=== PATIENT | female | born 2000 | race Caucasian/White ===

== ENCOUNTER 2022-10-19 19:21 | Inpatient (IN) | payer OTHER ==
[~2022-10-19] VITALS: Ht 162.6 cm; Wt 68.1 kg
[2022-10-20 00:20] VITALS: BP 111/72
[2022-10-20 00:23] VITALS: BP 111/72
[2022-10-20 03:59] LABS: Basophils # (auto) 0 10 ^3/uL (0-0.2); Basophils % (auto) 0.5 % (0.0-2.0); Eosinophils # (auto) 0.1 10 ^3/uL (0-0.8); Eosinophils % (auto) 0.5 % (0.0-7.0); Hematocrit 37.2 % (36.0-46.0); Hemoglobin 12.7 g/dL (12.2-16.2); Lymphocytes # (auto) 2.4 10 ^3/uL (0.4-5.4); Mean Corpuscular Hemoglobin 30.5 pg (28.0-32.0); Mean Corpuscular Volume 89.7 fL (80.0-100.0); Monocytes # (auto) 0.9 10 ^3/uL (0-1.3); Monocytes % (auto) 8.6 % (0.0-12.0); Neutrophils # (auto) 6.8 10 ^3/uL (1.6-8.6); Neutrophils % (auto) 66.4 % (37.0-80.0); Red Blood Cells 4.15 10^6/uL (4.0-5.20); Red Cell Distribution Width 13.8 % (11.8-14.3); White Blood Cell 10.2 10^3/uL (4.4-10.8)
[2022-10-20] MEDS: MORPHINE SULFATE INJ 2 MG/ml SYRG IV PRN ×4 (04:01→20:31)
[2022-10-20] MEDS: ONDANSETRON HCL 4 MG/2 ML VIAL IV PRN ×3 (04:03→20:31)
[2022-10-20 04:10] LABS: INR 1.03 (0.9-1.15); Partial Thromboplastin Time 29.4 sec (24.6-33.4)
[2022-10-20 04:12] LABS: Albumin 3.3 g/dL (3.4-5.0); BUN/Creatinine Ratio 14.9; Calcium 8.2 mg/dL (8.5-10.1); Potassium 3.6 mmol/L (3.5-5.1)
[2022-10-20 04:14] LABS: Bilirubin, Total 0.4 mg/dL (0.2-1.0); Total Protein 6.8 g/dL (6.4-8.2)
[2022-10-20] MEDS: SODIUM CHLORIDE 0.9% 1,000 ML IV SCH ×2 (04:24→16:50)
[2022-10-20 05:00] VITALS: BP 107/68
[2022-10-20] MEDS: metroNIDAZOLE 500MG/100ML 100 ML IV SCH ×3 (06:06→22:18)
[2022-10-20 07:09] LABS: Urine Blood Negative /uL (Negative); Urine Specific Gravity 1.032 (1.001-1.035)
[2022-10-20] MEDS ORDERED: BUPIVACAINE 0.25% INJ 50ML VIAL ONE (08:57)
[2022-10-20] MEDS ORDERED: fentaNYL CITRATE 100 MCG/2 ML VL ONE (08:57)
[2022-10-20] MEDS ORDERED: MEPERIDINE HCL (25 MG/ML) 1ML VIAL ONE (08:57)
[2022-10-20] MEDS ORDERED: SODIUM CHLORIDE LOCK 10 ML ONE (08:58)
[2022-10-20] MEDS ORDERED: GLYCOPYRROLATE 0.2 MG/ML 1ML VIAL ONE (08:58)
[2022-10-20] MEDS ORDERED: ROCURONIUM 10MG/ML 10ML VIAL IV ONE (08:58)
[2022-10-20] MEDS ORDERED: MIDAZOLAM HCL 2MG/2ML 2ml VIAL (1mg/ml) ONE (08:58)
[2022-10-20] MEDS ORDERED: DexAMETHasone SOD PHOS 10MG/1ML VIAL INJ ONE (08:58)
[2022-10-20] MEDS ORDERED: NEOSTIGMINE 1 MG/ML INJ (10mg/10ML VIAL) ONE (08:58)
[2022-10-20] MEDS ORDERED: ONDANSETRON HCL 4 MG/2 ML VIAL ONE (08:58)
[2022-10-20] MEDS ORDERED: SUCCINYLCHOLINE CHLORIDE 20 MG/ML 10ML VIAL IV ONE (08:59)
[2022-10-20] MEDS: cefTRIAXone 1GM/50ML D5W 50 ML IV SCH (09:00)
[2022-10-20 09:15] LABS: INR 1.03 (0.9-1.15)
[2022-10-20] MEDS ORDERED: HYDROmorphone HCL 2 MG/ML VL/or syr IV PRN ×2 (09:30)
[2022-10-20] MEDS ORDERED: MORPHINE SULFATE 4 MG/ML SYR/VIAL IV PRN (09:30)
[2022-10-20] MEDS ORDERED: METOCLOPRAMIDE HCL 5MG/ml INJ 2ml VIAL IV PRN (09:30)
[2022-10-20] MEDS ORDERED: ceFAZolin 1GM/50ML 100 ML IV ONE (09:32)
[2022-10-20] MEDS ORDERED: PANTOPRAZOLE 40 MG/10 ML VIAL INJ IV SCH (10:00)
[2022-10-20] MEDS ORDERED: SUGAMMADEX 200mg/2ml Vial (100MG/ML) IV ONE (10:24)
[2022-10-20] MEDS ORDERED: BUPIVACAINE 0.25% INJ 50ML VIAL IJ ONE (10:25)
[2022-10-20] MEDS ORDERED: PROPOFOL 10 MG/ML 20 ML IV ONE (10:47)
[2022-10-20] MEDS ORDERED: ONDANSETRON HCL 4 MG/2 ML VIAL IV ONE (11:25)
[2022-10-20] MEDS ORDERED: LACTATED RINGER'S 1,000 ML IV ONE (11:30)
[2022-10-20 12:25] VITALS: BP 116/73
[2022-10-20] MEDS: D5W/SOD CHL 0.45%/KCL 20MEQ 1,000 ML IV SCH ×2 (12:35→22:24)
[2022-10-20 16:48] VITALS: BP 97/60
[2022-10-20] MEDS ORDERED: MORPHINE SULFATE INJ 2 MG/ml SYRG IV ONE (18:00)
[2022-10-20 23:28] VITALS: BP 107/63
[2022-10-21] VITALS (7 sets, daily range): BP systolic 92–113; BP diastolic 56–78
[2022-10-21] MEDS: ONDANSETRON HCL 4 MG/2 ML VIAL IV PRN ×4 (00:35→20:11)
[2022-10-21] MEDS: MORPHINE SULFATE INJ 2 MG/ml SYRG IV PRN ×4 (00:36→20:12)
[2022-10-21] MEDS: metroNIDAZOLE 500MG/100ML 100 ML IV SCH ×3 (05:45→21:07)
[2022-10-21] MEDS: SODIUM CHLORIDE 0.9% 1,000 ML IV SCH (06:10)
[2022-10-21] MEDS: D5W/SOD CHL 0.45%/KCL 20MEQ 1,000 ML IV SCH (07:30)
[2022-10-21] MEDS: cefTRIAXone 1GM/50ML D5W 50 ML IV SCH (08:39)
[2022-10-22 05:00] VITALS: BP_SYST 128; BP_SYST 99; BP_DIAS 52; BP_DIAS 76
[2022-10-22 05:25] LABS: Basophils # (auto) 0 10 ^3/uL (0-0.2); Basophils % (auto) 0.4 % (0.0-2.0); Eosinophils # (auto) 0.1 10 ^3/uL (0-0.8); Eosinophils % (auto) 1.4 % (0.0-7.0); Hematocrit 33.9 % (36.0-46.0); Hemoglobin 11.4 g/dL (12.2-16.2); Lymphocytes % (auto) 38.6 % (10.0-50.0); Mean Corpuscular Hemoglobin 30.1 pg (28.0-32.0); Mean Corpuscular Hgb Conc. 33.6 g/dL (32.0-36.0); Mean Corpuscular Volume 89.7 fL (80.0-100.0); Monocytes # (auto) 0.6 10 ^3/uL (0-1.3); Neutrophils # (auto) 3.9 10 ^3/uL (1.6-8.6); Neutrophils % (auto) 51.6 % (37.0-80.0); Red Blood Cells 3.78 10^6/uL (4.0-5.20); White Blood Cell 7.6 10^3/uL (4.4-10.8)
[2022-10-22 05:40] LABS: Albumin 2.9 g/dL (3.4-5.0); Calcium 8.4 mg/dL (8.5-10.1); Potassium 3.8 mmol/L (3.5-5.1)
[2022-10-22 05:43] LABS: BUN/Creatinine Ratio 14.3; Bilirubin, Total 0.2 mg/dL (0.2-1.0); Total Protein 5.6 g/dL (6.4-8.2)
[2022-10-22] MEDS: ONDANSETRON HCL 4 MG/2 ML VIAL IV PRN ×2 (06:04→11:29)
[2022-10-22] MEDS: MORPHINE SULFATE INJ 2 MG/ml SYRG IV PRN ×3 (06:04→11:29)
[2022-10-22] MEDS: metroNIDAZOLE 500MG/100ML 100 ML IV SCH (06:38)
[2022-10-22 08:10] VITALS: BP 97/59
[2022-10-22 09:00] VITALS: BP 99/59
[2022-10-22] MEDS: cefTRIAXone 1GM/50ML D5W 50 ML IV SCH (09:37)
[2022-10-22 12:07] VITALS: BP 97/59
[2022-10-22 12:24] VITALS: BP 104/70
[2022-10-22] MEDS ORDERED: metroNIDAZOLE 500 MG TAB PO SCH (22:00)
== END 2022-10-22 12:40 | disposition home or self-care (01) | DRG 342 ==
LOC: EAST 10-20 00:39
PROVIDERS: ADMIT Internal Medicine; ATTEND Internal Medicine
PROC: 0DTJ4ZZ Resection of Appendix, Percutaneous Endoscopic Approach (ICD-10-PCS; principal; 2022-10-20 09:48)
DX: K35.80 Unspecified acute appendicitis (principal); E44.0 Moderate protein-calorie malnutrition; E11.9 Type 2 diabetes mellitus without complications; Z20.822 Contact with and (suspected) exposure to COVID-19; Z80.8 Family history of malignant neoplasm of other organs or systems; Z80.3 Family history of malignant neoplasm of breast; Z68.25 Body mass index [BMI] 25.0-25.9, adult
CPT/HCPCS: 36415; 76705; 76856; 80053; 81003; 83690; 84702; 85025; 85610; 85730; 86850; 86900; 86901; 87075; 87205; 87426; G0378; J0330; J0690; J0696; J1100; J2250; J2405; J2704; J3490